=== PATIENT | female | born 1940 | race Caucasian/White ===

== ENCOUNTER 2019-01-25 14:44 | Inpatient (IN) ==
[2019-01-25 16:14] LABS: Basophils # 0.1 10*3/uL (0.0-0.2); Basophils % 0.7 % (0.0-0.8); Eosinophils # 0.2 10*3/uL (0.0-0.87); Eosinophils % 2.4 % (0.00-10.9); Hematocrit 43.1 VOL% (35.7-47.0); Hemoglobin 13.8 GM/DL (12.0-16.0); Immature Granulocytes % 0.4 %; Immature Granulocytes Absolute 0.03 #; Lymphocytes # 1.7 10*3/uL (1.4-4.0); Lymphocytes % 20.3 % (21.3-54.2); Mean Corpuscular Volume 100.2 FL (87-102); Mean Platelet Volume 9.7 FL (9.6-12.0); Neutrophils % 66.2 % (38.7-73.9); Platelet Count 282 T/CUMM (130-400); Red Cell Distribution Width 13.7 % (9.3-17.3); White Blood Count 8.5 T/CUMM (4-12)
[2019-01-25 16:37] LABS: Calcium 9.6 MG/DL (8.5-10.1); Osmolality,Calculated 280.5 MOS/KG (273-304)
[2019-01-25] MEDS ORDERED: ACETAMINOPHEN 325 MG TABLET PO PRN (17:33)
[2019-01-25] MEDS ORDERED: ONDANSETRON 4 MG/2 ML VIAL IV PRN (17:33)
[2019-01-25] MEDS ORDERED: DEXTROSE 50% 25 GM/50 ML VIAL IV PRN (20:38)
[2019-01-25] MEDS ORDERED: GLUCAGON 1 MG VIAL IM PRN (20:38)
[2019-01-25] MEDS: rOPINIRole 4 MG TABLET PO SCH (21:50)
[2019-01-25] MEDS: SIMVASTATIN 20 MG TABLET PO SCH (21:50)
[2019-01-25] MEDS: SODIUM CHLORIDE 0.9% 1,000 ML IV SCH (21:50)
[2019-01-25] MEDS: ASPIRIN EC 81 MG TABLET PO SCH (21:50)
[2019-01-25] MEDS: INSULIN REGULAR 100 UNIT/ML SUBCUT SCH (21:51)
[2019-01-25] MEDS: traZODone 50 MG TABLET PO SCH (21:51)
[2019-01-25] MEDS: POTASSIUM CHLORIDE 20 MEQ TABLET PO SCH (21:51)
[2019-01-25] MEDS: GABAPENTIN 300 MG CAPSULE PO SCH (21:51)
[2019-01-25] MEDS ORDERED: MELATONIN 3 MG TABLET PO PRN (22:18)
[2019-01-26] MEDS: ALBUTEROL/IPRATROPIUM 3 ML NEB RESP TX SCH ×4 (00:34→19:24)
[2019-01-26 06:26] LABS: Basophils # 0.1 10*3/uL (0.0-0.2); Eosinophils # 0.3 10*3/uL (0.0-0.87); Eosinophils % 3.6 % (0.00-10.9); Hematocrit 41.4 VOL% (35.7-47.0); Hemoglobin 13.3 GM/DL (12.0-16.0); Immature Granulocytes % 0.3 %; Immature Granulocytes Absolute 0.02 #; Lymphocytes # 1.6 10*3/uL (1.4-4.0); Lymphocytes % 22.3 % (21.3-54.2); Mean Corpuscular HGB Conc 32.1 GM/DL (32-36); Mean Platelet Volume 10.1 FL (9.6-12.0); Monocytes % 11.6 % (1.7-12.7); Neutrophils % 61.2 % (38.7-73.9); Platelet Count 250 T/CUMM (130-400); Red Cell Distribution Width 13.5 % (9.3-17.3); White Blood Count 7.3 T/CUMM (4-12)
[2019-01-26 06:52] LABS: Vitamin B12 1491 PG/ML (211-911)
[2019-01-26 06:53] LABS: Albumin 3.4 G/DL (3.4-5.0); Bilirubin,Total 1.1 MG/DL (0.2-1.0); Calcium 8.9 MG/DL (8.5-10.1); Osmolality,Calculated 285.1 MOS/KG (273-304); Thyroid Stimulating Hormone 2.61 uIU/ml (0.358-3.74); Total Protein 6.6 G/DL (6.4-8.3)
[2019-01-26] MEDS ORDERED: IPRATROPIUM 500 MCG/2.5 ML NEB RESP TX SCH (07:00)
[2019-01-26] MEDS: SODIUM CHLORIDE 0.9% 1,000 ML IV SCH ×2 (08:15→18:28)
[2019-01-26] MEDS: INSULIN REGULAR 100 UNIT/ML SUBCUT SCH ×4 (08:42→21:01)
[2019-01-26] MEDS ORDERED: FUROSEMIDE 20 MG/2 ML VIAL IV SCH (09:00)
[2019-01-26] MEDS: METOPROLOL SUCCINATE XL 50 MG TABLET PO SCH (09:12)
[2019-01-26] MEDS: POTASSIUM CHLORIDE 20 MEQ TABLET PO SCH ×2 (09:12→21:01)
[2019-01-26] MEDS: PANTOPRAZOLE 40 MG TABLET PO SCH (09:13)
[2019-01-26] MEDS: amLODIPine 5 MG TABLET PO SCH (09:14)
[2019-01-26] MEDS: FUROSEMIDE 40 MG/4 ML VIAL IV SCH (09:15)
[2019-01-26] MEDS ORDERED: AMIODARONE INJ 450 MG in DEXTROSE 5% 241 ML IV SCH (10:30)
[2019-01-26] MEDS: DABIGATRAN 150 MG CAPSULE PO SCH ×2 (11:14→21:00)
[2019-01-26] MEDS: AMIODARONE INJ 450 MG in DEXTROSE 5% 241 ML IV SCH (18:35)
[2019-01-26] MEDS: TEMAZEPAM 15 MG CAPSULE PO PRN (20:59)
[2019-01-26] MEDS: rOPINIRole 4 MG TABLET PO SCH (20:59)
[2019-01-26] MEDS: traMADol 50 MG TABLET PO PRN (21:00)
[2019-01-26] MEDS: traZODone 50 MG TABLET PO SCH (21:00)
[2019-01-26] MEDS: ASPIRIN EC 81 MG TABLET PO SCH (21:00)
[2019-01-26] MEDS: GABAPENTIN 300 MG CAPSULE PO SCH (21:01)
[2019-01-26] MEDS: SIMVASTATIN 20 MG TABLET PO SCH (21:01)
[2019-01-27] MEDS: ALBUTEROL/IPRATROPIUM 3 ML NEB RESP TX SCH ×4 (00:26→19:51)
[2019-01-27 05:21] LABS: Albumin 3.6 G/DL (3.4-5.0); Bilirubin,Total 0.5 MG/DL (0.2-1.0); Calcium 8.3 MG/DL (8.5-10.1); Osmolality,Calculated 284.1 MOS/KG (273-304); Total Protein 6.6 G/DL (6.4-8.3)
[2019-01-27] MEDS: SODIUM CHLORIDE 0.9% 1,000 ML IV SCH (05:22)
[2019-01-27] MEDS: INSULIN REGULAR 100 UNIT/ML SUBCUT SCH ×4 (07:34→20:39)
[2019-01-27] MEDS: FUROSEMIDE 40 MG/4 ML VIAL IV SCH (09:16)
[2019-01-27] MEDS: amLODIPine 5 MG TABLET PO SCH (09:50)
[2019-01-27] MEDS: PANTOPRAZOLE 40 MG TABLET PO SCH (09:50)
[2019-01-27] MEDS: METOPROLOL SUCCINATE XL 50 MG TABLET PO SCH (09:50)
[2019-01-27] MEDS: DABIGATRAN 150 MG CAPSULE PO SCH ×2 (09:50→21:13)
[2019-01-27] MEDS: POTASSIUM CHLORIDE 20 MEQ TABLET PO SCH ×2 (09:50→21:13)
[2019-01-27] MEDS: AMIODARONE 200 MG TABLET PO SCH ×3 (10:27→21:13)
[2019-01-27] MEDS: AMIODARONE INJ 450 MG in DEXTROSE 5% 241 ML IV SCH (12:15)
[2019-01-27] MEDS: traZODone 50 MG TABLET PO SCH (21:11)
[2019-01-27] MEDS: SIMVASTATIN 20 MG TABLET PO SCH (21:13)
[2019-01-27] MEDS: TEMAZEPAM 15 MG CAPSULE PO PRN (21:13)
[2019-01-27] MEDS: ASPIRIN EC 81 MG TABLET PO SCH (21:13)
[2019-01-27] MEDS: rOPINIRole 4 MG TABLET PO SCH (21:13)
[2019-01-27] MEDS: GABAPENTIN 300 MG CAPSULE PO SCH (21:13)
[2019-01-27] MEDS: traMADol 50 MG TABLET PO PRN (21:13)
[2019-01-28] MEDS: NITROGLYCERIN SL 0.4 MG TABLET SL PRN ×2 (00:35→00:46)
[2019-01-28] MEDS: ALBUTEROL/IPRATROPIUM 3 ML NEB RESP TX SCH ×4 (00:47→19:05)
[2019-01-28] MEDS ORDERED: NITROGLYCERIN DRIP 50 MG/250 ML BOTTLE IV PRN (00:55)
[2019-01-28 04:54] LABS: Basophils # 0.1 10*3/uL (0.0-0.2); Basophils % 0.6 % (0.0-0.8); Eosinophils # 0.2 10*3/uL (0.0-0.87); Eosinophils % 1.6 % (0.00-10.9); Hematocrit 38.6 VOL% (35.7-47.0); Hemoglobin 11.9 GM/DL (12.0-16.0); Immature Granulocytes % 0.5 %; Immature Granulocytes Absolute 0.06 #; Lymphocytes # 1.1 10*3/uL (1.4-4.0); Lymphocytes % 9.2 % (21.3-54.2); Mean Corpuscular HGB Conc 30.8 GM/DL (32-36); Mean Corpuscular Volume 102.7 FL (87-102); Mean Platelet Volume 9.9 FL (9.6-12.0); Monocytes % 9.4 % (1.7-12.7); Neutrophils % 78.7 % (38.7-73.9); Platelet Count 251 T/CUMM (130-400); Red Blood Count 3.76 MC/CUMM (3.8-5.5); Red Cell Distribution Width 13.6 % (9.3-17.3); White Blood Count 11.6 T/CUMM (4-12)
[2019-01-28 05:24] LABS: Albumin 3.9 G/DL (3.4-5.0); Bilirubin,Total 0.6 MG/DL (0.2-1.0); Calcium 8.7 MG/DL (8.5-10.1); Osmolality,Calculated 278.7 MOS/KG (273-304); Total Protein 6.9 G/DL (6.4-8.3)
[2019-01-28] MEDS: BUDESONIDE 0.25 MG/2 ML NEB RESP TX SCH ×2 (06:27→19:07)
[2019-01-28] MEDS ORDERED: methylPREDNISolone SOD SUC 40 MG/1 ML VIAL IV SCH (06:30)
[2019-01-28] MEDS: ALPRAZolam 0.25 MG TABLET PO SCH ×3 (06:35→20:43)
[2019-01-28] MEDS: AMIODARONE INJ 450 MG in DEXTROSE 5% 241 ML IV SCH (07:17)
[2019-01-28 07:22] LABS: Amorphous Crystals,Urine Few /HPF (Few); Apearance,Urine CLEAR (Clear); Bilirubin,Urine Negative (Negative); Blood, Urine Negative (Negative); Glucose,Urine (UA) Negative (Negative); Ketones,Urine Negative (Negative); Mucus,Urine Occasional /LPF (Occasional); Nitrite,Urine Negative (Negative); Protein,Urine Negative; RBC,Urine 1 /HPF (0-4); Squamous Epithelial Cell,Urine Occasional /HPF (0-10); Urine Color Yellow (Yellow); Urine Specific Gravity 1.013 (1.001-1.035); Urine Urobilinogen < 2.0 EU/DL (0.2-1.0)
[2019-01-28 08:24] LABS: Troponin I 0.148 NG/ML (0.00-0.045)
[2019-01-28] MEDS ORDERED: cefTRIAXone 1,000 MG in SYRINGE 1 EACH IV SCH (08:30)
[2019-01-28] MEDS: INSULIN REGULAR 100 UNIT/ML SUBCUT SCH ×3 (09:20→17:00)
[2019-01-28] MEDS: cefTRIAXone 1,000 MG in SYRINGE 1 EACH IV SCH (09:22)
[2019-01-28] MEDS: METOPROLOL SUCCINATE XL 50 MG TABLET PO SCH (09:23)
[2019-01-28] MEDS: PANTOPRAZOLE 40 MG TABLET PO SCH (09:23)
[2019-01-28] MEDS: amLODIPine 5 MG TABLET PO SCH (09:23)
[2019-01-28] MEDS: DABIGATRAN 150 MG CAPSULE PO SCH ×2 (09:23→09:26)
[2019-01-28] MEDS: AMIODARONE 200 MG TABLET PO SCH ×2 (09:24→20:43)
[2019-01-28] MEDS: FUROSEMIDE 40 MG/4 ML VIAL IV SCH (09:24)
[2019-01-28] MEDS: methylPREDNISolone SOD SUC 40 MG/1 ML VIAL IV SCH ×2 (09:24→17:00)
[2019-01-28] MEDS: POTASSIUM CHLORIDE 20 MEQ TABLET PO SCH ×2 (09:24→20:43)
[2019-01-28] MEDS: traZODone 50 MG TABLET PO SCH (20:43)
[2019-01-28] MEDS: ASCORBIC ACID 500 MG TABLET PO SCH (20:43)
[2019-01-28] MEDS: SIMVASTATIN 20 MG TABLET PO SCH (20:43)
[2019-01-28] MEDS: ASPIRIN EC 81 MG TABLET PO SCH (20:43)
[2019-01-28] MEDS: rOPINIRole 4 MG TABLET PO SCH (20:43)
[2019-01-28] MEDS: GABAPENTIN 300 MG CAPSULE PO SCH (20:43)
[2019-01-29] MEDS: ALBUTEROL/IPRATROPIUM 3 ML NEB RESP TX SCH ×4 (00:30→19:36)
[2019-01-29] MEDS: methylPREDNISolone SOD SUC 40 MG/1 ML VIAL IV SCH ×4 (00:50→23:56)
[2019-01-29] MEDS: INSULIN REGULAR 100 UNIT/ML SUBCUT SCH ×5 (02:18→20:20)
[2019-01-29 05:09] LABS: Basophils % 0.1 % (0.0-0.8); Hematocrit 40.2 VOL% (35.7-47.0); Hemoglobin 12.6 GM/DL (12.0-16.0); Immature Granulocytes % 0.4 %; Immature Granulocytes Absolute 0.05 #; Lymphocytes # 0.8 10*3/uL (1.4-4.0); Mean Corpuscular HGB Conc 31.3 GM/DL (32-36); Mean Corpuscular Volume 102.6 FL (87-102); Mean Platelet Volume 10.2 FL (9.6-12.0); Monocytes % 6.2 % (1.7-12.7); Neutrophils % 87.3 % (38.7-73.9); Platelet Count 262 T/CUMM (130-400); Red Blood Count 3.92 MC/CUMM (3.8-5.5); Red Cell Distribution Width 13.5 % (9.3-17.3); White Blood Count 12.8 T/CUMM (4-12)
[2019-01-29 05:14] LABS: Calcium 9.1 MG/DL (8.5-10.1); Osmolality,Calculated 281.5 MOS/KG (273-304)
[2019-01-29 05:15] LABS: Risk Ratio 2.57
[2019-01-29] MEDS: BUDESONIDE 0.25 MG/2 ML NEB RESP TX SCH ×2 (07:53→19:36)
[2019-01-29] MEDS: ASCORBIC ACID 500 MG TABLET PO SCH ×2 (09:41→20:19)
[2019-01-29] MEDS: AMIODARONE 200 MG TABLET PO SCH ×2 (09:41→20:19)
[2019-01-29] MEDS: PANTOPRAZOLE 40 MG TABLET PO SCH (09:41)
[2019-01-29] MEDS: amLODIPine 5 MG TABLET PO SCH (09:41)
[2019-01-29] MEDS: ALPRAZolam 0.25 MG TABLET PO SCH ×3 (09:41→20:19)
[2019-01-29] MEDS: METOPROLOL SUCCINATE XL 50 MG TABLET PO SCH (09:42)
[2019-01-29] MEDS: POTASSIUM CHLORIDE 20 MEQ TABLET PO SCH ×2 (09:42→20:19)
[2019-01-29] MEDS: FUROSEMIDE 40 MG/4 ML VIAL IV SCH (09:44)
[2019-01-29] MEDS: cefTRIAXone 1,000 MG in SYRINGE 1 EACH IV SCH (09:46)
[2019-01-29] MEDS ORDERED: NITROGLYCERIN DRIP 50 MG/250 ML BOTTLE IV ONE (16:18)
[2019-01-29] MEDS ORDERED: VERAPAMIL 5 MG/2 ML VIAL ONE (16:18)
[2019-01-29] MEDS ORDERED: LIDOCAINE 1% 20 ML VIAL ONE (16:18)
[2019-01-29] MEDS ORDERED: MIDAZOLAM 2 MG/2 ML VIAL ONE (16:21)
[2019-01-29] MEDS ORDERED: HYDROmorphone 2 MG/1 ML VIAL ONE (16:21)
[2019-01-29] MEDS ORDERED: ENOXAPARIN 60 MG/0.6 ML SYRINGE ONE (16:32)
[2019-01-29] MEDS ORDERED: TIROFIBAN 5,000 MCG/100 ML PREMIX IV ONE (16:42)
[2019-01-29] MEDS ORDERED: ADENOSINE 90 MG/30 ML VIAL IV ONE (17:03)
[2019-01-29] MEDS ORDERED: TICAGRELOR 90 MG TABLET ONE (17:15)
[2019-01-29] MEDS ORDERED: ZALEPLON 5 MG CAPSULE PO PRN (17:27)
[2019-01-29] MEDS ORDERED: HYDROmorphone 2 MG/1 ML VIAL IV PRN (17:27)
[2019-01-29] MEDS: SIMVASTATIN 20 MG TABLET PO SCH (20:19)
[2019-01-29] MEDS: GABAPENTIN 300 MG CAPSULE PO SCH (20:19)
[2019-01-29] MEDS: ASPIRIN EC 81 MG TABLET PO SCH (20:19)
[2019-01-29] MEDS: TICAGRELOR 90 MG TABLET PO SCH (20:19)
[2019-01-29] MEDS: traZODone 50 MG TABLET PO SCH ×2 (20:20→20:23)
[2019-01-29] MEDS: rOPINIRole 4 MG TABLET PO SCH (20:20)
[2019-01-29] MEDS: TEMAZEPAM 15 MG CAPSULE PO PRN (23:45)
[2019-01-30] MEDS: ALBUTEROL/IPRATROPIUM 3 ML NEB RESP TX SCH ×3 (01:10→13:27)
[2019-01-30 05:20] LABS: Basophils % 0.1 % (0.0-0.8); Hematocrit 39.2 VOL% (35.7-47.0); Hemoglobin 12.2 GM/DL (12.0-16.0); Immature Granulocytes % 0.6 %; Immature Granulocytes Absolute 0.07 #; Lymphocytes # 0.4 10*3/uL (1.4-4.0); Mean Corpuscular HGB Conc 31.1 GM/DL (32-36); Mean Corpuscular Volume 101.8 FL (87-102); Mean Platelet Volume 10.1 FL (9.6-12.0); Monocytes % 1.9 % (1.7-12.7); Neutrophils % 94.4 % (38.7-73.9); Platelet Count 269 T/CUMM (130-400); Red Blood Count 3.85 MC/CUMM (3.8-5.5); Red Cell Distribution Width 13.8 % (9.3-17.3); White Blood Count 11.8 T/CUMM (4-12)
[2019-01-30 05:49] LABS: Band Neutrophils 2 % (0-10); Lymphocytes 2 % (20-55); Segmented Neutrophils 94 % (50-85)
[2019-01-30 05:50] LABS: Platelet Estimate Adequate; Total Cells Counted 100
[2019-01-30 05:52] LABS: Blood Urea Nitrogen 26 MG/DL (7-18); Calcium 8.8 MG/DL (8.5-10.1); Glucose 153 MG/DL (74-106); Osmolality,Calculated 288.3 MOS/KG (273-304); Troponin I < 0.015 NG/ML (0.00-0.045)
[2019-01-30] MEDS: BUDESONIDE 0.25 MG/2 ML NEB RESP TX SCH (06:45)
[2019-01-30] MEDS ORDERED: ROSUVASTATIN 20 MG TABLET PO SCH (09:00)
[2019-01-30] MEDS: ALPRAZolam 0.25 MG TABLET PO SCH (09:28)
[2019-01-30] MEDS: cefTRIAXone 1,000 MG in SYRINGE 1 EACH IV SCH (09:28)
[2019-01-30] MEDS: POTASSIUM CHLORIDE 20 MEQ TABLET PO SCH (09:28)
[2019-01-30] MEDS: methylPREDNISolone SOD SUC 40 MG/1 ML VIAL IV SCH (09:28)
[2019-01-30] MEDS: PANTOPRAZOLE 40 MG TABLET PO SCH (09:29)
[2019-01-30] MEDS: amLODIPine 5 MG TABLET PO SCH (09:29)
[2019-01-30] MEDS: TICAGRELOR 90 MG TABLET PO SCH (09:29)
[2019-01-30] MEDS: INSULIN REGULAR 100 UNIT/ML SUBCUT SCH ×2 (09:29→12:24)
[2019-01-30] MEDS: ASCORBIC ACID 500 MG TABLET PO SCH (09:29)
[2019-01-30] MEDS: METOPROLOL SUCCINATE XL 50 MG TABLET PO SCH (09:29)
[2019-01-30 16:23] VITALS: BP 142/62
== END 2019-01-30 16:05 | disposition home health service (06) | DRG 246 ==
LOC: N.ED 14:44 → N.TELES 17:33 → N.CC 01-28 01:05
PROVIDERS: ADMIT Family Medicine; ATTEND Family Medicine
PROC: CLCCHCL (ICD-10-PCS; 2019-01-29 15:15)